=== PATIENT | male | born 1985 ===

== ENCOUNTER 2023-12-05 09:56 | Outpatient (AMB) | payer BC, SELFPAY ==
--- NOTE | 2023-12-05 10:08 | MHC.OFFWIV ---
Intake Vital Signs 12/05/23 10:10 Weight 177 lb BP 110/70 Blood Pressure Location Lt brachial Position Sitting Pulse 74 Pulse Source Pulse Oximeter Pulse Oximetry (%) 98 Oxygen Delivery Method Room Air Intake Visit Reasons: EP ?Eye concerns Intake Note: Patient here because for the last three days his eyes have been very red, slight burning. Patient Tobacco Use Status: Never used Tobacco Allergies No Known Allergies Allergy (Verified 12/05/23 10:11) Do you need a note to return to daycare/school/sports/work: No HPI HPI Comments History of Present Illness Details This is a 38-year-old male who presented to the walk-in clinic complaining of bilateral eye redness/irritation. Patient states he began with sneezing 3 days ago. He woke up 2 days ago and his right eye was red with some mild drainage but his left eye had no drainage or erythema. He then woke up yesterday in his left eye was also red with some drainage. Patient states he took Benadryl last night but he woke up and his eyes were crusty. He denies any visual disturbances. He is otherwise feeling well. [facility] Social History Patient Tobacco Use Status: Never used Tobacco Review of Systems Const All systems reviewed & are unremarkable except as noted in HPI and below Reports no additional complaints Eyes Reports no additional complaints ENT Reports no additional complaints Card Reports no additional complaints Resp Reports no additional complaints GI Reports no additional complaints Reports no additional complaints Musc Reports no additional complaints Skin/Breast Reports system reviewed and no additional complaints, except as documented Neuro Reports no additional complaints Psych Reports no additional complaints Endo Reports no additional complaints Alverto/Lymph Reports no additional complaints Aller/Immun Reports no additional complaints Physical Exam Vital Signs: Last Vital Signs Pulse 74 12/05/23 10:10 BP 110/70 12/05/23 10:10 Pulse Ox 98 12/05/23 10:10 Oxygen Delivery Method Room Air 12/05/23 10:10 Const Other: Vital signs reviewed. Constitutional: Non-toxic appearing. No acute distress. Well-developed and well-nourished. HEENT: Normocephalic and atraumatic. Bilateral conjunctival injection with crusting of the eyelids. No periorbital/eyelid swelling. Skin: Warm and dry. No rashes or lesions noted. Neck: Full and painless range of motion. Cardio: Regular rate and rhythm. Pulmonary: No respiratory distress. No accessory muscle usage. Musculoskeletal: Normal range of motion in joints throughout the body. No deformity or other signs of injury. Neuro: Alert and oriented x4. Cranial nerves 2-12 grossly intact. No focal deficits appreciated. Psych: Normal mood and affect. Assessment & Plan Assessment & Plan (1) Bacterial conjunctivitis of both eyes: Code(s): H10.9 - Unspecified conjunctivitis; B96.89 - Other specified bacterial agents as the cause of diseases classified elsewhere Plan: This is a 38-year-old male who presented to the walk-in clinic complaining of bilateral eye redness/irritation with crusting/drainage. History and physical most consistent with bacterial conjunctivitis, allergic conjunctivitis was considered given presence of sneezing; however, bacterial is more likely as his symptoms started in one eye and then spread towards the other. Patient given a prescription for erythromycin ophthalmic ointment 4 times daily x7 days. He was instructed to try oral antihistamines such as Claritin/Zyrtec as well. If his symptoms do not improve with erythromycin ointment, patient was encouraged to hop picker [id number] olopatadine eyedrops. Patient verbalizes understanding and he is in agreement with the plan. Medications: New erythromycin 0.5 inches ophthalmic (eye) QID 7 days 3.5 grams 0RF Coding Level of Care Code Est Pt Level 3 (16119) Diagnoses Bacterial conjunctivitis of both eyes H10.9; B96.89
[2023-12-05 10:10] VITALS: BP 110/70; PULSE 74; O2SAT 98
== END 2023-12-05 10:55 | disposition home or self-care (01) ==
PROVIDERS: Visit Provider Physician Assistant Medical
DX: H10.9 Unspecified conjunctivitis (principal); B96.89 Other specified bacterial agents as the cause of diseases classified elsewhere
CPT/HCPCS: 99213